=== PATIENT | male | born 1965 | race African-American/Black ===

== ENCOUNTER 2018-10-24 21:57 | Emergency (ER) | payer OTHER ==
[2018-10-24] MEDS ORDERED: Lidocaine 1% (PF) 30 ML VIAL ONE (22:08)
== END 2018-10-24 22:25 ==
LOC: NAV ERS 21:57
DX: S01.112A Laceration without foreign body of left eyelid and periocular area, initial encounter (principal); I10 Essential (primary) hypertension; E78.00 Pure hypercholesterolemia, unspecified; E11.9 Type 2 diabetes mellitus without complications; F31.9 Bipolar disorder, unspecified; Z87.891 Personal history of nicotine dependence; Z79.899 Other long term (current) drug therapy; Z79.82 Long term (current) use of aspirin; W01.198A Fall on same level from slipping, tripping and stumbling with subsequent striking against other object, initial encounter
CPT/HCPCS: 12011; J2001